=== PATIENT | female | born 1985 | race Caucasian/White ===

== ENCOUNTER 2025-08-16 07:32 | Outpatient (OUT) | payer OTHER, SELFPAY ==
--- NOTE | 2025-08-16 07:42 | MM_ITS ---
Patient Name: SUREKHA OWENS MR#: [id number] : 1985 Exam Date: 08/16/2025 Ordering Doctor: DR. REBEKAH ELIZABETH M.D. RADIOLOGY REPORT PROCEDURE: MM TOMOSYNTHESIS SCREENING BI COMPARISON: None. INDICATIONS: Screening Calculator Name NCI Breast Cancer Risk Assessment Tool 5 Year Breast Cancer Risk 0.50% Lifetime Breast Cancer Risk 8.20% Personal Breast Cancer No Personal Ovarian Cancer No Treatments None Family Cancers None LOCATION: [facility] BREAST COMPOSITION: The breasts are heterogeneously dense, which may obscure small masses. FINDINGS: RIGHT BREAST: No significant suspicious finding. LEFT BREAST: No significant suspicious finding. Benign-appearing lymph nodes are noted along the left chest wall . DIAGNOSTIC CATEGORY 2--BENIGN FINDING: RECOMMENDATIONS: ROUTINE MAMMOGRAM AND CLINICAL EVALUATION IN 12 MONTHS. Dictated by: Gage Hall MD on 08/16/2025 at 17:03 Approved by: Gage Hall MD on 08/16/2025 at 17:07
== END 2025-08-16 07:33 | disposition home or self-care (01) ==
LOC: MAMMO 07:37
PROVIDERS: PCP Student in an Organized Health Care Education/Training Program; Visit Provider Student in an Organized Health Care Education/Training Program
DX: Z12.31 Encounter for screening mammogram for malignant neoplasm of breast (principal)
CPT/HCPCS: 77063; 77067